=== PATIENT | female | born 1960 | race Caucasian/White ===

== ENCOUNTER 2023-09-03 18:34 | Inpatient (IN) | payer MEDICARE, OTHER ==
[~2023-09-03] VITALS: Ht 157.5 cm; Wt 64.0 kg
[2023-09-03] MEDS ORDERED: PYRI-6 PO (19:07)
[2023-09-03] MEDS ORDERED: POLY17PO4 PO (19:07)
[2023-09-03] MEDS ORDERED: BACL10TA PO (19:07)
[2023-09-03] MEDS ORDERED: GABA100C PO (19:07)
[2023-09-03] MEDS ORDERED: APIX5TAB PO (19:07)
[2023-09-03] MEDS ORDERED: MAGN400O6 PO (19:07)
[2023-09-03] MEDS ORDERED: ACET-2154 PO (19:07)
[2023-09-03] MEDS ORDERED: HYDR-4209 PO (19:07)
[2023-09-03] MEDS ORDERED: ESCI20TA PO (19:07)
[2023-09-03] MEDS ORDERED: CARB1TAB21 PO (19:07)
[2023-09-03] MEDS ORDERED: AMAN100T PO (19:07)
[2023-09-03] MEDS ORDERED: CARB1TAB40 PO (19:07)
[2023-09-03] MEDS ORDERED: MELA3CAP2 PO (19:07)
[2023-09-03] MEDS ORDERED: CHOL500050 PO (19:07)
[2023-09-03] MEDS ORDERED: TRIH2TAB5 PO (19:07)
[2023-09-03] MEDS ORDERED: METO-357 PO (19:07)
[2023-09-03] MEDS ORDERED: RASA1TAB4 PO (19:07)
[2023-09-03] MEDS ORDERED: SENN-261 PO (19:07)
[2023-09-03] MEDS ORDERED: ARIP5TAB10 PO (19:07)
[2023-09-03] MEDS ORDERED: NAPR-1196 PO (19:07)
[2023-09-03 19:14] LABS: BASOPHILS # (AUTO) 0.1 K/UL (0.0-0.2); BASOPHILS % (AUTO) 1.2 % (0.0-2.0); EOSINOPHILS # (AUTO) 0.2 K/uL (0.0-0.7); EOSINOPHILS % (AUTO) 3.6 % (0.0-7.0); HEMATOCRIT 39.2 % (31.2-41.9); HEMOGLOBIN 13.3 g/dL (10.9-14.3); LYMPHOCYTES # (AUTO) 1.9 K/uL (0.8-4.8); LYMPHOCYTES % (AUTO) 34.9 % (20.5-51.5); MEAN CORPUSCULAR HEMOGLOBIN 32.4 uug (24.7-32.8); MEAN CORPUSCULAR HGB CONC 34 g/dL (32.3-35.6); MEAN CORPUSCULAR VOLUME 95.4 fL (75.5-95.3); MONOCYTES # (AUTO) 0.5 K/uL (0.1-1.30); MONOCYTES % (AUTO) 9.6 % (0.0-11.0); NEUTROPHILS # (AUTO) 2.8 K/uL (1.8-8.9); NEUTROPHILS % (AUTO) 50.7 % (38.5-71.5); PLATELET COUNT (AUTO) 237 K/uL (179-408); RED BLOOD CELL COUNT(AUTO) 4.11 MIL/uL (3.63-4.92); RED CELL DISTRIBUTION WIDTH 13.5 % (12.3-17.7); WHITE BLOOD COUNT (AUTO) 5.4 K/uL (3.8-11.8)
[2023-09-03 19:15] LABS: DIFFERENTIAL COMMENT 1
[2023-09-03 19:24] LABS: THYROID STIMULATING HORMONE 1.681 mIU/mL (0.358-3.740)
[2023-09-03 19:36] LABS: ALBUMIN 3.7 g/dL (3.4-5.0); ALKALINE PHOSPHATASE 110 U/L (50-136); BILIRUBIN,DIRECT 0.3 mg/dL (0.0-0.2); BILIRUBIN,TOTAL 1.3 mg/dL (0.2-1.0); CALCIUM 8.8 mg/dL (8.5-10.1); CARBON DIOXIDE 29 mmol/L (21-32); CHLORIDE 105 mmol/L (98-107); CREATININE 0.7 mg/dL (0.6-1.3); GLUCOSE 117 mg/dL (74-106); POTASSIUM 3.8 mmol/L (3.5-5.1); SODIUM SERUM 140 mmol/L (136-145); TOTAL PROTEIN, SERUM 6.9 g/dL (6.4-8.2); UREA NITROGEN, BLOOD 16 mg/dL (7-18)
[2023-09-03 19:47] LABS: ETHANOL < 3 MG/DL (0-10)
[2023-09-03 19:48] LABS: ACETAMINOPHEN < 2.0 ug/mL (10-30)
[2023-09-03 19:58] LABS: ASPARTATE AMINOTRANSFERASE 6 U/L (15-37)
[2023-09-03 20:01] LABS: ALANINE AMINOTRANSFERASE 6 U/L (14-59)
[2023-09-03 20:33] LABS: *BILIRUBIN,URIN NEGATIVE (NEGATIVE); *BLOOD, URINE NEGATIVE (NEGATIVE); *CLARITY,URINE CLEAR (CLEAR); *COLOR,URINE YELLOW (YELLOW); *KETONES,URINE TRACE (NEGATIVE); *PROTEIN,URINE NEGATIVE (NEGATIVE); *UROBILINOGEN,URINE 0.2 E.U./dl (NORMAL); LEUKOCYTE ESTERASE ,URINE NEGATIVE (NEGATIVE); NITRITE, URINE NEGATIVE (NEGATIVE); UGLUCOSE NEGATIVE (NEGATIVE)
[2023-09-03 20:46] LABS: *AMPHETAMINE, URINE NEGATIVE (NEGATIVE); *BARBITURATE, URINE NEGATIVE (NEGATIVE); *BENZODIAZEPINE, URINE NEGATIVE (NEGATIVE); *CANNABINOID, URINE NEGATIVE (NEGATIVE); *COCCAINE, URINE NEGATIVE (NEGATIVE); *OPIATE, URINE POSITIVE (NEGATIVE); *PHENCYCLIDINE SCREEN,URINE NEGATIVE (NEGATIVE); FENTANYL, URINE NEGATIVE (NEGATIVE)
[2023-09-03] MEDS: ARIPIPRAZOLE 5 MG TABLET PO ONE (22:45)
[2023-09-03] MEDS ORDERED: ARIPIPRAZOLE 5 MG TABLET ONE (22:50)
[2023-09-03 23:00] VITALS: BP 155/86; TEMP 98.3; O2SAT 99
[2023-09-04] MEDS: BLOOD SUGAR DIAGNOSTIC 1 EACH STRIP VI ONE
[2023-09-04] MEDS ORDERED: MAG HYDROX/AL HYDROX/SIMETH 30 ML LIQUID UDC PO PRN
[2023-09-04] MEDS ORDERED: BACLOFEN 10 MG TABLET PO PRN (00:30)
[2023-09-04] MEDS ORDERED: MAGNESIUM HYDROXIDE 30 ML LIQUID UDC PO PRN ×2 (00:30)
[2023-09-04] MEDS ORDERED: HYDROCODONE/APAP 5-325MG TABLET PO PRN ×2 (00:30→05:27)
[2023-09-04] MEDS ORDERED: ACETAMINOPHEN 325 MG TABLET-SA PATIENTS-PAIN ONLY PO PRN (00:30)
[2023-09-04] MEDS ORDERED: CARBIDOPA/LEVODOPA 25-100MG TABLET PO SCH (06:00)
[2023-09-04] MEDS: CARBIDOPA/LEVODOPA 25-100MG TABLET PO ONE ×2 (06:30→11:11)
[2023-09-04 08:30] VITALS: BP 122/56; TEMP 98.2; O2SAT 98
[2023-09-04] MEDS ORDERED: GABAPENTIN 100 MG CAPSULE PO SCH (09:00)
[2023-09-04] MEDS ORDERED: CARBIDOPA/LEVODOPA CR 50-200MG TABLET.SA PO SCH (09:00)
[2023-09-04] MEDS: MIRALAX 17 GM POWD.PACK PO SCH (09:06)
[2023-09-04] MEDS: SENNOSIDES 1 TABLET PO SCH (09:07)
[2023-09-04] MEDS: APIXABAN 5 MG TABLET PO SCH (09:07)
[2023-09-04] MEDS: AMANTADINE HCL 100 MG CAPSULE PO SCH (09:08)
[2023-09-04] MEDS: METOPROLOL SUCCINATE XL 50 MG TAB.SR.24H PO SCH (09:08)
[2023-09-04] MEDS: GABAPENTIN 100 MG CAPSULE PO SCH (10:57)
[2023-09-04] MEDS: DIVALPROEX SPRINKLE 125 MG CAP.SPRINK PO SCH (13:47)
[2023-09-04] MEDS: CARBIDOPA/LEVODOPA 25-100MG TABLET PO SCH (13:47)
[2023-09-04] MEDS: TRIHEXYPHENIDYL HCL 2 MG TABLET PO SCH (13:49)
[2023-09-04] MEDS: ARIPIPRAZOLE 5 MG TABLET PO SCH ×2 (13:50→20:53)
[2023-09-04 15:32] VITALS: BP 102/46; TEMP 97.8; O2SAT 98
[2023-09-04] MEDS: CHOLECALCIFEROL 1,000 UNIT TABLET PO SCH (17:14)
[2023-09-04 20:00] VITALS: BP 131/53; TEMP 98; O2SAT 100
[2023-09-04] MEDS ORDERED: MELATONIN 3 MG TABLET PO SCH (21:00)
[2023-09-04] MEDS: CARBIDOPA/LEVODOPA CR 50-200MG TABLET.SA PO SCH (22:24)
[2023-09-05 07:58] VITALS: BP 154/61; TEMP 98.2; O2SAT 98
[2023-09-05] MEDS: PYRIDOXINE HCL 100 MG TABLET PO SCH (08:29)
[2023-09-05] MEDS ORDERED: Medication Not On Formulary EA (Rasagiline Mesylate 1 MG) PO SCH (09:00)
[2023-09-05] MEDS: BACLOFEN 10 MG TABLET PO PRN (15:04)
[2023-09-05 15:35] VITALS: BP 131/71; TEMP 98; O2SAT 99
[2023-09-05] MEDS: LORAZEPAM 0.5 MG TABLET PO PRN (15:40)
[2023-09-05 18:55] VITALS: O2SAT 99
[2023-09-05 20:00] VITALS: BP 132/72; TEMP 98; O2SAT 100
[2023-09-06 08:07] VITALS: BP 109/54; TEMP 98.6; O2SAT 98
[2023-09-06 16:03] VITALS: BP 103/54; TEMP 97.7; O2SAT 98
[2023-09-06 20:30] VITALS: BP 111/46; TEMP 98; O2SAT 98
[2023-09-07 08:13] VITALS: BP 101/64; TEMP 98.3; O2SAT 98
[2023-09-07 16:03] VITALS: BP 126/58; TEMP 98.1; O2SAT 97
[2023-09-07 19:45] VITALS: BP 128/59; TEMP 98.3; O2SAT 99
[2023-09-07] MEDS: ARIPIPRAZOLE 5 MG TABLET PO SCH (21:03)
[2023-09-08 07:48] VITALS: BP 140/72; TEMP 98.2; O2SAT 98
[2023-09-08 16:07] VITALS: BP 104/56; TEMP 98; O2SAT 98
[2023-09-08 19:51] VITALS: BP 100/50; TEMP 97.9; O2SAT 100
[2023-09-09 08:30] VITALS: BP 117/70; TEMP 99; O2SAT 99
[2023-09-09 15:10] VITALS: BP 93/60; TEMP 98.2; O2SAT 100
[2023-09-09 20:00] VITALS: BP 137/65; TEMP 98.1; O2SAT 98
[2023-09-09] MEDS: ATORVASTATIN 10 MG TABLET PO SCH (20:50)
[2023-09-10 07:54] VITALS: BP 128/62; TEMP 98; O2SAT 100
[2023-09-10] MEDS: ARIPIPRAZOLE 5 MG TABLET PO SCH ×2 (12:34→17:25)
[2023-09-10 15:16] VITALS: BP 104/50; TEMP 98; O2SAT 99
[2023-09-10 20:00] VITALS: BP 120/60; TEMP 98; O2SAT 99
[2023-09-11] MEDS: TEMAZEPAM 7.5 MG CAPSULE PO PRN (00:08)
[2023-09-11 08:02] VITALS: BP 139/65; TEMP 98.2; O2SAT 100
[2023-09-11 16:27] VITALS: BP 125/47; TEMP 97.8; O2SAT 98
[2023-09-12 07:59] VITALS: BP 126/59; TEMP 98.4; O2SAT 96
[2023-09-12] MEDS: NAPROXEN 250 MG TABLET PO PRN (10:28)
[2023-09-12 15:54] VITALS: BP 134/86; TEMP 98; O2SAT 98
[2023-09-12 20:00] VITALS: BP 109/51; TEMP 98; O2SAT 100
[2023-09-13] MEDS: GLUCERNA SHAKE 237 ML CAN PO SCH (08:22)
[2023-09-13 08:24] VITALS: BP 90/54; TEMP 97.7; O2SAT 98
[2023-09-13 16:23] VITALS: BP 98/57; TEMP 97.9; O2SAT 98
[2023-09-13] MEDS: ARIPIPRAZOLE 5 MG TABLET PO SCH (16:32)
[2023-09-13 19:53] VITALS: BP 126/75; TEMP 98; O2SAT 100
[2023-09-14 08:14] VITALS: BP 130/67; TEMP 98.2; O2SAT 98
[2023-09-14 15:46] VITALS: BP 100/56; TEMP 97.6; O2SAT 97
[2023-09-14 19:47] VITALS: BP 101/52; TEMP 98.1; O2SAT 96
[2023-09-15 07:52] VITALS: BP 136/70; TEMP 97.9; O2SAT 98
[2023-09-15 16:26] VITALS: BP 122/56; TEMP 98.5; O2SAT 98
[2023-09-15 20:18] VITALS: BP 118/66; TEMP 97.9; O2SAT 96
[2023-09-16 09:09] VITALS: BP 140/75; TEMP 98.6; O2SAT 98
[2023-09-16] MEDS: ARIPIPRAZOLE 5 MG TABLET PO SCH (12:58)
[2023-09-16 15:35] VITALS: BP 142/77; TEMP 98.6; O2SAT 98
[2023-09-16 20:20] VITALS: BP 136/76; TEMP 98.2; O2SAT 96
[2023-09-17 09:00] VITALS: BP 136/63; TEMP 98.4; O2SAT 98
[2023-09-17] MEDS: ACETAMINOPHEN 325 MG TABLET PO PRN (15:26)
== END 2023-09-17 15:30 | DRG 885 ==
LOC: ER 18:35 → GPS 21:40
PROVIDERS: ADMIT Psychiatry & Neurology Psychosomatic Medicine; ATTEND Student in an Organized Health Care Education/Training Program
DX: F25.9 Schizoaffective disorder, unspecified (principal); U07.1 COVID-19; F02.84 Dementia in other diseases classified elsewhere, unspecified severity, with anxiety; F02.83 Dementia in other diseases classified elsewhere, unspecified severity, with mood disturbance; I48.0 Paroxysmal atrial fibrillation; G20.A1 Parkinson's disease without dyskinesia, without mention of fluctuations; K21.9 Gastro-esophageal reflux disease without esophagitis; I10 Essential (primary) hypertension; M15.9 Polyosteoarthritis, unspecified; G89.29 Other chronic pain; M54.50 Low back pain, unspecified; Z79.899 Other long term (current) drug therapy; Z79.01 Long term (current) use of anticoagulants
CPT/HCPCS: 36415; 71045; 80164; 84443; 84484; 85025; 93005; G0480